=== PATIENT | female | born 1990 | race Caucasian/White ===

== ENCOUNTER 2018-09-27 07:09 | Emergency (ER) | payer OTHER ==
[~2018-09-27] VITALS: Ht 152.4 cm; Wt 72.0 kg
[~2018-09-27 07:09] MED LIST: DOXY-153; SPIR50TA
[2018-09-27 07:13] VITALS: Ht 152.4 cm; Wt 72.0 kg
[2018-09-27] MEDS ORDERED: KETOROLAC 30 MG INJ IM STA (07:47)
[2018-09-27] MEDS ORDERED: ONDANSETRON 4 MG INJ IV STA (07:47)
[2018-09-27] MEDS ORDERED: SOD CHLORIDE 0.9% 1,000 ML IV STA (07:47)
[2018-09-27] MEDS ORDERED: KETOROLAC 30 MG INJ IV STA (08:05)
[2018-09-27] MEDS ORDERED: KETOROLAC 15 MG INJ IV STA (08:31)
[2018-09-27] MEDS ORDERED: ACET500T98 PO (10:10)
[2018-09-27] MEDS ORDERED: IBUP-1542 PO (10:10)
[2018-09-27] MEDS ORDERED: HYDR-4011 PO (10:10)
[2018-09-27] MEDS ORDERED: ONDA4TAB14 PO (10:11)
--- NOTE | 2018-09-27 10:20 | ERD ---
ER Documentation Chief Complaint Chief Complaint BILATERAL FLANK PAIN SINCE LAST NIGHT WITH N/V HPI 28-year-old female presents for abdominal pain times 1 day. She also has associated nausea vomiting. She denies any fevers. She states that the pain is in the bilateral upper quadrants. She took 2 Tylenols last night without reli ef. She denies any dysuria. Denies diarrhea. Denies chest pain or shortness of breath. ROS All systems reviewed and are negative except as per history of present illness. Medications Home Meds Active Scripts Ondansetron (Ondansetron Odt) 4 Mg Tab.rapdis, 4 MG PO Q6H PRN for NAUSEA AND/OR VOMITING, #15 TAB Prov:ALBANALEX 09/27/18 Hydrocodone/Acetaminophen (Lambert 5-325 Tablet) 1 Each Tablet, 1 TAB PO Q6H PRN for PAIN, #10 TAB Prov:ALBANALEX 09/27/18 Acetaminophen (Tylenol) 500 Mg Tab, 500 MG PO Q4H PRN for PAIN, #30 TAB Prov:ALEX PHOENIX DO 09/27/18 Ibuprofen* (Motrin*) 600 Mg Tab, 600 MG PO Q6H PRN for PAIN AND OR ELEVATED TEMP, #30 TAB Prov:PHOENIXALEX 09/27/18 Reported Medications Spironolactone* (Aldactone*) 50 Mg Tablet, DAILY 09/18/11 Doxycycline Hyclate (Doxycycline Hyclate) 100 Mg Capsule, DAILY 09/18/11 Allergies Allergies: Uncoded Allergies: NKDA (Allergy, Unknown, 09/27/18) PMhx/Soc History of Surgery: No Anesthesia Reaction: No Hx Neurological Disorder: No Hx Respiratory Disorders: No Hx Cardiac Disorders: No Hx Psychiatric Problems: No Hx Miscellaneous Medical Probl: No Hx Alcohol Use: No Hx Substance Use: No Hx Tobacco Use: No Smoking Status: Never smoker Physical Exam Vitals Vital Signs Date Temp Pulse Resp B/P (MAP) Pulse Ox O2 O2 Flow FiO2 Time Delivery Rate 09/27/18 98.8 74 18 154/84 99 07:13 (107) Physical Exam Const: Moderate acute distress due to pain Resp: Clear to auscultation bilaterally Cardio: Regular rate and rhythm, no murmurs Abd: Soft, non distended. Normal bowel sounds, there is diffuse tenderness to palpation, no rebound or guarding noted Skin: No petechiae or rashes Back: No midline or flank tenderness Ext: No cyanosis, or edema Neur: Awake and alert Psych: Normal Mood and Affect Result Diagram: 09/27/18 0750 09/27/18 0750 Results 24 hrs Laboratory Tests Test 09/27/18 07:50 09/27/18 07:57 White Blood Count 14.9 10^3/ul Red Blood Count 4.61 10^6/ul Hemoglobin 14.2 g/dl Hematocrit 42.0 % Mean Corpuscular Volume 91.1 fl Mean Corpuscular Hemoglobin 30.8 pg Mean Corpuscular Hemoglobin Concent 33.8 g/dl Red Cell Distribution Width 12.0 % Platelet Count 393 10^3/UL Mean Platelet Volume 9.6 fl Immature Granulocytes % 0.300 % Neutrophils % 81.3 % Lymphocytes % 13.3 % Monocytes % 4.4 % Eosinophils % 0.4 % Basophils % 0.3 % Nucleated Red Blood Cells % 0.0 /100WBC Immature Granulocytes # 0.050 10^3/ul Neutrophils # 12.1 10^3/ul Lymphocytes # 2.0 10^3/ul Monocytes # 0.7 10^3/ul Eosinophils # 0.1 10^3/ul Basophils # 0.1 10^3/ul Nucleated Red Blood Cells # 0.0 10^3/ul Urine Color YELLOW Urine Clarity CLEAR Urine pH 5.0 Urine Specific Balfour 1.027 Urine Ketones NEGATIVE mg/dL Urine Nitrite NEGATIVE mg/dL Urine Bilirubin NEGATIVE mg/dL Urine Urobilinogen NEGATIVE mg/dL Urine Leukocyte Esterase NEGATIVE Sarah/ul Urine Microscopic RBC 2 /HPF Urine Microscopic WBC 1 /HPF Urine Squamous Epithelial Cells FEW /HPF Urine Bacteria FEW /HPF Urine Mucus FEW /HPF Urine Hemoglobin 1+ mg/dL Urine Glucose NEGATIVE mg/dL Urine Total Protein NEGATIVE mg/dl Sodium Level 142 mmol/L Potassium Level 4.0 mmol/L Chloride Level 103 mmol/L Carbon Dioxide Level 23 mmol/L Anion Gap 16 Blood Urea Nitrogen 12 mg/dl Creatinine 0.54 mg/dl Est Glomerular Filtrat Rate mL/min > 60 mL/min Glucose Level 102 mg/dl Calcium Level 9.9 mg/dl Total Bilirubin 0.5 mg/dl Direct Bilirubin 0.00 mg/dl Indirect Bilirubin 0.5 mg/dl Aspartate Amino Transf (AST/SGOT) 20 IU/L Alanine Aminotransferase (ALT/SGPT) 25 IU/L Alkaline Phosphatase 57 IU/L Total Protein 8.1 g/dl Albumin 4.7 g/dl Globulin 3.40 g/dl Albumin/Globulin Ratio 1.38 Lipase 215 U/L POC Beta HCG, Qualitative NEGATIVE Current Medications Medications Dose Sig/Marco A Start Time Status Last (Trade) Ordered Route PRN Stop Time Admin Dose Reason Admin Ondansetron 4 mg ONCE STAT 09/27/18 DC 09/27/18 HCl (Zofran IV 07:47 07:56 Inj) 09/27/18 07:50 Ketorolac 30 mg ONCE STAT 09/27/18 DC Tromethamine IM 07:47 (Toradol) 09/27/18 08:06 Sodium 1,000 ml @ Q1H STAT 09/27/18 DC 09/27/18 Chloride 1,000 mls/hr IV 07:47 07:56 09/27/18 08:46 Ketorolac 30 mg ONCE STAT 09/27/18 DC 09/27/18 Tromethamine IV 08:05 08:07 (Toradol) 09/27/18 08:09 Ketorolac 15 mg ONCE STAT 09/27/18 DC 09/27/18 Tromethamine IV 08:31 08:34 (Toradol) 09/27/18 08:32 1 tab ONCE ONCE 09/27/18 Acetaminophen PO 10:30 / 09/27/18 10:31 Hydrocodone Bitart (Lambert (5/325)) Procedures/MDM Medical Decision Making: Differential diagnosis includes but not limited to acute gastroenteritis, appendicitis, cholecystitis, pancreatitis. Patient appeared in moderate distress secondary to pain on physical examination.. Nontoxic appearing. Labs: CBC showed no anemia, mildly elevated WBC of 14.9. CMP showed no electrolyte abnormalities, there was normal kidney and liver f unction Lipase was normal Urine was negative UA was negative for infection Imaging: Abdominal ultrasound showed gallstones with mild gallbladder wall thickening, no pericholecystic fluid. Patient likely has biliary colic. Given normal LFTs patient advised that she would need elective surgery. Advised to get referral to general surgery from her primary care doctor. ED course: Patient was given Zofran, Toradol, Lambert. Symptoms improved with treatment. Prescription(s): Patient given prescription for Tylenol, Motrin, Lambert short course low-dose. Patient advised to follow up with PCP in 1-2 days. Patient advised to return to ED for new or worsening symptoms. Patient stable on discharge from the ED. The patient has been prescribed Lambert during this encounter. The patient has been warned about the use of narcotics. The patient should not drive or operate heavy machinery while taking this medication. The patient was also warned about the addictive properties of narcotic medications. Narcan prescription was NOT provided given the following criteria 1. No more than 5 tablets of Lambert 10 mg or 10 tablets of Lambert 5 mg were prescribed. 2. Concomitant opiate and benzodiazepine prescriptions were not provided. 3. There is no obvious evidence of prior history of opiate abuse or overdose. Disclaimer: Inadvertent spelling and grammatical errors are likely due to EHR /dictation software use and do not reflect on the overall quality of patient care. Also, please note that the electronic time recorded on this note does not necessarily reflect the actual time of the patient encounter. Departure Diagnosis: Primary Impression: Biliary colic Condition: Fair Patient Instructions: Biliary Colic With Gallstone (Confirmed) Referrals: [facility] YOU HAVE RECEIVED A MEDICAL SCREENING EXAM AND THE RESULTS INDICATE THAT YOU DO NOT HAVE A CONDITION THAT REQUIRES URGENT TREATMENT IN THE EMERGENCY DEPARTMENT. FURTHER EVALUATION AND TREATMENT OF YOUR CONDITION CAN WAIT UNTIL YOU ARE SEEN IN YOUR DOCTORS OFFICE WITHIN THE NEXT 1-2 DAYS. IT IS YOUR RESPONSIBILITY TO MAKE AN APPOINTMENT FOR FOLOW-UP CARE. IF YOU HAVE A PRIMARY DOCTOR --you should call your primary doctor and schedule an appointment IF YOU DO NOT HAVE A PRIMARY DOCTOR YOU CAN CALL OUR PHYSICIAN REFERRAL HOTLINE AT IF YOU CAN NOT AFFORD TO SEE A PHYSICIAN YOU CAN CHOSE FROM THE FOLLOWING [facility] [address] [facility] [facility] [address] [facility] [facility] [address] [facility] [facility] [address] [facility]. [facility] [place] [address] [facility]. [facility]. [address] Additional Instructions: Call your primary care doctor TOMORROW for an appointment during the next 1-2 days.See the doctor sooner or return here if your condition worsens before your appointment time. ALEX PHOENIX DO Sep 27, 2018 10:20
[2018-09-27 10:28] VITALS: BP 121/80; PULSE 69; RESP 18
[2018-09-27] MEDS ORDERED: HYDROCODONE/APAP (5/325) TAB PO ONE (10:30)
== END 2018-09-27 10:29 | disposition home or self-care (01) ==
LOC: FTE 07:09
DX: K80.20 Calculus of gallbladder without cholecystitis without obstruction (principal)
CPT/HCPCS: 36415; 76700; 80053; 81001; 81025; 83690; 85025; 96361; 96374; 96375; 96376; 99285; J1885; J2405; J7030

== ENCOUNTER 2018-11-06 20:16 | Emergency (ER) | payer SELFPAY ==
[~2018-11-06] VITALS: Ht 170.2 cm; Wt 71.8 kg
[~2018-11-06 20:16] MED LIST changes: +ACET500T98 PO; +HYDR-4011 PO; +IBUP-1542 PO; +ONDA4TAB14 PO
[2018-11-06 20:51] VITALS: BP 138/85; PULSE 86; RESP 17; Ht 170.2 cm; Wt 71.8 kg
== END 2018-11-06 21:00 | disposition left against medical advice (07) ==
LOC: FTE 20:16
DX: Z53.21 Procedure and treatment not carried out due to patient leaving prior to being seen by health care provider (principal)